=== PATIENT | female | born 1965 | race Caucasian/White ===

== ENCOUNTER → 2020-08-15 | Outpatient (CLI) | payer OTHER ==
--- NOTE | 2020-08-17 08:09 | BD ---
EXAMINATION TYPE: Axial Bone Density DATE OF EXAM: 08/15/2020 COMPARISON: NONE CLINICAL HISTORY: Postmenopausal female. Disorder of bone. Height: 64 IN Weight: 125 LBS FRAX RISK QUESTIONS: Secondary Osteoporosis: Rheumatoid Arthritis: YES RISK FACTORS HISTORY OF: Active: YES Diet low in dairy products/other sources of calcium: YES Postmenopausal woman: PARTIAL HYST AGE 44 MEDICATIONS: Additional Medications: VIT D, NAPROXEN, MAGNESIUM, MULTI VIT, B12, EXAM MEASUREMENTS: Bone mineral densitometry was performed using the [employer] System. Bone mineral density as measured about the Lumbar spine is: ----- L1-L4(G/cm2): 1.157 T Score Values are as follows: ----- L2: -0.3 ----- L3: 0.1 ----- L4: 0.0 ----- L1-L4: -0.2 Bone mineral density BASELINE Bone mineral density about the R hip (g/cm2): 0.734 Bone mineral density about the L hip (g/cm2): 0.774 T Score values are as follows: -----R Neck: -2.2 -----L Neck: -1.9 -----R Total: -1.8 -----L Total: -1.9 Bone mineral density BASELINE IMPRESSION: Osteopenia (T Score between -2.5 and -1) in both hips. There is slightly increased risk of fracture and the patient may be considered for treatment. Re-Screen 2-5 years. NOTE: T-SCORE=SD OF THE YOUNG ADULT MEAN.
--- NOTE | 2020-08-17 12:09 | MM ---
Reason for exam: screening (asymptomatic). Last mammogram was performed 4 years and 4 months ago. History: Patient is postmenopausal. Family history of breast cancer in maternal aunt at age 80. Took hormonal contraceptives for 4 years. Physical Findings: A clinical breast exam by your physician is recommended on an annual basis and results should be correlated with mammographic findings. MG Screening Mammo w CAD Bilateral CC and MLO view(s) were taken. Prior study comparison: April 09, 2016, bilateral MG screening mammo w CAD. Finding: There are typically benign, fine, diffuse/scattered calcifications in both breasts. No significant changes in finding since April 09, 2016. ASSESSMENT: Benign, BI-RAD 2 RECOMMENDATION: Routine screening mammogram of both breasts in 1 year.
== END | disposition home or self-care (01) ==
LOC: RADMAMWWP 14:28
PROVIDERS: ATTEND Family Medicine
DX: Z12.31 Encounter for screening mammogram for malignant neoplasm of breast (principal); M85.89 Other specified disorders of bone density and structure, multiple sites
CPT/HCPCS: 77067; 77080

== ENCOUNTER 2023-08-06 16:45 | Observation (INO) | payer OTHER ==
--- NOTE | 2023-08-06 18:10 | ED ---
General Adult HPI - General Chief complaint: Chest Pain Stated complaint: Chest pain,irregular EKG Time Seen by Provider: 08/06/23 17:33 Source: patient, RN notes reviewed, old records reviewed Mode of arrival: ambulatory Limitations: no limitations - History of Present Illness Initial comments: 57-year-old female presenting for evaluation of chest pain and hypertension. Patient was seen by primary care provider today for evaluation of elevated blood pressure. She states she is under a great deal of stress. She was noted to have some EKG changes and was sent to the emergency department with concern for ACS. She'll be given nitroglycerin and aspirin prior to arrival. - Related Data Home Medications Medication Instructions Recorded Confirmed Naproxen [Naprosyn] 500 mg PO BID PRN 03/18/16 08/06/23 Adalimumab [Humira(Cf) Pen] 40 mg SQ Q14D 08/06/23 08/06/23 Allergies Allergy/AdvReac Type Severity Reaction Status Date / Time No Known Allergies Allergy Verified 08/06/23 20:47 Review of Systems ROS Statement: Those systems with pertinent positive or pertinent negative responses have been documented in the HPI. ROS Other: All systems not noted in ROS Statement are negative. Past Medical History Past Medical History: Osteoarthritis (OA) History of Any Multi-Drug Resistant Organisms: None Reported Past Surgical History: Hysterectomy Past Anesthesia/Blood Transfusion Reactions: Motion Sickness Past Psychological History: No Psychological Hx Reported Past Alcohol Use History: Occasional Past Drug Use History: None Reported - Past Family History Mother Family Medical History: No Reported History General Exam Limitations: no limitations General appearance: alert, in no apparent distress, anxious Head exam: Present: atraumatic, normocephalic Eye exam: Present: normal appearance, PERRL Neck exam: Present: normal inspection. Absent: tenderness, meningismus Respiratory exam: Present: normal lung sounds bilaterally. Absent: respiratory distress, wheezes Cardiovascular Exam: Present: regular rate, normal rhythm GI/Abdominal exam: Present: soft. Absent: distended, tenderness, guarding Neurological exam: Present: alert, oriented X3, CN II-XII intact. Absent: motor sensory deficit Psychiatric exam: Present: anxious Skin exam: Present: warm, dry, intact Course Vital Signs 08/06/23 08/06/23 08/06/23 17:43 19:38 20:55 Temperature Pulse Rate 80 82 78 Pulse Rate [ Pulse Oximetery ] Respiratory 18 16 14 Rate Blood Pressure 213/109 175/95 140/123 Blood Pressure [Left Arm] O2 Sat by Pulse 100 97 98 Oximetry 08/06/23 08/06/23 08/07/23 21:45 22:07 01:05 Temperature Pulse Rate 84 75 73 Pulse Rate [ Pulse Oximetery ] Respiratory 18 16 18 Rate Blood Pressure 151/111 138/76 134/84 Blood Pressure [Left Arm] O2 Sat by Pulse 98 98 97 Oximetry 08/07/23 08/07/23 08/07/23 02:05 03:59 09:56 Temperature Pulse Rate 80 80 75 Pulse Rate [ Pulse Oximetery ] Respiratory 18 18 20 Rate Blood Pressure 145/99 145/99 147/89 Blood Pressure [Left Arm] O2 Sat by Pulse 96 96 98 Oximetry 08/07/23 08/07/23 08/07/23 10:39 12:00 13:00 Temperature Pulse Rate 88 89 87 Pulse Rate [ Pulse Oximetery ] Respiratory 16 20 20 Rate Blood Pressure 142/82 134/76 150/98 Blood Pressure [Left Arm] O2 Sat by Pulse 99 98 98 Oximetry 08/07/23 08/07/23 14:00 14:14 Temperature 98.3 F Pulse Rate 68 Pulse Rate [ 85 Pulse Oximetery ] Respiratory 20 20 Rate Blood Pressure 157/68 Blood Pressure 124/68 [Left Arm] O2 Sat by Pulse 97 98 Oximetry Medical Decision Making - Medical Decision Making Was pt. sent in by a medical professional or institution (, PA, ORDER PROCESSING MANAGER, urgent care, hospital, or jail...) When possible be specific @ -No Did you speak to anyone other than the patient for history (EMS, parent, family, police, friend...)? What history was obtained from this source @ -No Did you review nursing and triage notes (agree or disagree)? Why? @ -I reviewed and agree with nursing and triage notes Were old charts reviewed (outside hosp., previous admission, EMS record, old EKG, old radiological studies, urgent care reports/EKG's, jail records)? Report findings @ -No old charts were reviewed Differential Diagnosis (chest pain, altered mental status, abdominal pain women, abdominal pain men, vaginal bleeding, weakness, fever, dyspnea, syncope, h eadache, dizziness, GI bleed, back pain, seizure, CVA, palpatations, mental health, musculoskeletal)? @ Differential Chest Pain: Stable Angina, Unstable Angina, STEMI, NSTEMI Aortic Dissection, Pneumothorax, Musculoskeletal, Esophageal Spasm GERD, Cholecystitis, Pancreatitis, Zoster, this is not meant to be an all-inclusive list. EKG interpreted by me (3pts min.). @ -Sinus rhythm right bundle branch block, rate of 88, AZ interval 152, QRS duration 121, QTC 428, no ST segment elevation. X-rays interpreted by me (1pt min.). @ -Chest x-ray no pneumothorax, normal cardiac silhouette, no focal pneumonia CT interpreted by me (1pt min.). @ CT angiogram shows normal caliber aorta, nondiagnostic for distal pulmonary emboli but no central pulmonary embolism visualized. U/S interpreted by me (1pt. min.). @ -None done What testing was considered but not performed or refused? (CT, X-rays, U/S, labs)? Why? @ -None What meds were considered but not given or refused? Why? @ -None Did you discuss the management of the patient with other professionals (professionals i.e. , PA, ORDER PROCESSING MANAGER, lab, RT, psych nurse, social secretary, parts puller, teacher, financial officer, casework specialist)? Give summary @ -No Was smoking cessation discussed for >3mins.? @ -No Was critical care preformed (if so, how long)? @ -yes, 35 min Were there social determinants of health that impacted care today? How? (Homelessness, low income, unemployed, alcoholism, drug addiction, transportation, low edu. Level, literacy, decrease access to med. care, fdc, rehab)? @ -No Was there de-escalation of care discussed even if they declined (Discuss DNR or withdrawal of care, Hospice)? DNR status @ -No What co-morbidities impacted this encounter? (DM, HTN, Smoking, COPD, CAD, Cancer, CVA, ARF, Chemo, Hep., AIDS, mental health diagnosis, sleep apnea, morbid obesity)? @ -None Was patient admitted / discharged? Hospital course, mention meds given and route, prescriptions, significant lab abnormalities, going to OR and other perti nent info. @ -57-year-old female presenting with elevated blood pressure and chest tightness. EKG is sinus without ST segment elevation. No old for comparison. Patient has a chest x-ray is clear. Normal CBC, normal CMP, initial troponin is negative. I did order CT of the chest with contrast given the hypotension and chest discomfort. This was negative for aortic pathology. No central pulmonary embolism. Patient's blood pressure is down trending in the emergency depart ment, Still remains elevated. She will be admitted for serial cardiac enzymes, telemetry cardiology consultation. Will be ordered. Undiagnosed new problem with uncertain prognosis? @ -No Drug Therapy requiring intensive monitoring for toxicity (Heparin, Nitro, Insulin, Cardizem)? @ -No Were any procedures done? @ -No Diagnosis/symptom? @ -[Chest pain. HTN Acute, or Chronic, or Acute on Chronic? @ -acute Uncomplicated (without systemic symptoms) or Complicated (systemic symptoms)? @ -[complicated Side effects of treatment? @ -No Exacerbation, Progression, or Severe Exacerbation? @ -No Poses a threat to life or bodily function? How? (Chest pain, USA, NM, pneumonia, PE, COPD, DKA, ARF, appy, cholecystitis, CVA, Diverticulitis, Homicidal, Suicidal, threat to staff... and all critical care pts) @ -[yes, acs - Lab Data Result diagrams: 08/06/23 17:51 08/06/23 17:51 Lab Results 08/06/23 08/06/23 08/06/23 Range/Units 17:51 17:51 17:51 WBC 8.5 (3.8-10.6) k/uL RBC 4.54 (3.80-5.40) m/uL Hgb 13.6 (11.4-16.0) gm/dL Hct 41.4 (34.0-46.0) % MCV 91.3 (80.0-100.0) fL MCH 30.1 (25.0-35.0) pg MCHC 33.0 (31.0-37.0) g/dL RDW 13.5 (11.5-15.5) % Plt Count 361 (150-450) k/uL MPV 6.9 Neutrophils % 59 % Lymphocytes % 32 % Monocytes % 5 % Eosinophils % 1 % Basophils % 1 % Neutrophils # 5.0 (1.3-7.7) k/uL Lymphocytes # 2.8 (1.0-4.8) k/uL Monocytes # 0.4 (0-1.0) k/uL Eosinophils # 0.1 (0-0.7) k/uL Basophils # 0.1 (0-0.2) k/uL Sodium 138 (137-145) mmol/L Potassium 3.6 (3.5-5.1) mmol/L Chloride 102 (98-107) mmol/L Carbon Dioxide 22 (22-30) mmol/L Anion Gap 14 mmol/L BUN 19 H (7-17) mg/dL Creatinine 0.62 (0.52-1.04) mg/dL Est GFR (CKD-EPI)AfAm >90 (>60 ml/min/1.73 sqM) Est GFR (CKD-EPI)NonAf >90 (>60 ml/min/1.73 sqM) Glucose 97 (74-99) mg/dL Calcium 9.3 (8.4-10.2) mg/dL Magnesium 2.3 (1.6-2.3) mg/dL Total Bilirubin 0.4 (0.2-1.3) mg/dL AST 29 (14-36) U/L ALT 20 (4-34) U/L Alkaline Phosphatase 127 H (38-126) U/L Troponin I <0.012 (0.000-0.034) ng/mL NT-Pro-B Natriuret Pep 93 pg/mL Total Protein 8.4 H (6.3-8.2) g/dL Albumin 4.3 (3.5-5.0) g/dL Lipase 208 (23-300) U/L Critical Care Time Critical Care Time: Yes Total Critical Care Time: 35 Disposition Clinical Impression: Chest pain, Hypertension Disposition: ADMITTED IP TO THIS HOSP Condition: Stable Is patient prescribed a controlled substance at d/c from ED?: No Time of Disposition: 20:06
[2023-08-06 18:23] LABS: Basophils # (A) 0.1 k/uL (0-0.2); Basophils % (A) 1 %; Eosinophils # (A) 0.1 k/uL (0-0.7); Eosinophils % (A) 1 %; HCT 41.4 % (34.0-46.0); HGB 13.6 gm/dL (11.4-16.0); Lymphocytes # (A) 2.8 k/uL (1.0-4.8); Lymphocytes % (A) 32 %; MCH 30.1 pg (25.0-35.0); MCV 91.3 fL (80.0-100.0); Mean Platelet Volume 6.9; Monocytes # (A) 0.4 k/uL (0-1.0); Monocytes % (A) 5 %; Neutrophils % (A) 59 %; Platelet Count 361 k/uL (150-450); RBC 4.54 m/uL (3.80-5.40); RDW 13.5 % (11.5-15.5); WBC 8.5 k/uL (3.8-10.6)
--- NOTE | 2023-08-06 18:38 | XR ---
EXAMINATION TYPE: XR chest 2V DATE OF EXAM: 08/06/2023 COMPARISON: None HISTORY: 57-year-old female with chest pain TECHNIQUE: PA and lateral views FINDINGS: The cardiomediastinal silhouette, aorta, and pulmonary vasculature are within normal limits. Some str lucero atelectasis at the left base. Otherwise, lungs and pleural spaces are clear. IMPRESSION: Some strandy left basilar atelectasis. Otherwise, no acute process seen.
[2023-08-06 18:50] LABS: NT-Pro-B-Type Natriuretic Pept 93 pg/mL
[2023-08-06] MEDS ORDERED: NITROGLYCERIN-D5W PMX 50 MG in DEXTROSE/WATER 1 250ML.BAG IV ONE (19:03)
[2023-08-06 19:41] LABS: ALT 20 U/L (4-34); AST 29 U/L (14-36); African American GFR (CKD) >90 (>60 ml/min/1.73 sqM); Albumin 4.3 g/dL (3.5-5.0); Alkaline Phosphatase 127 U/L (38-126); Anion Gap 14 mmol/L; Blood Urea Nitrogen 19 mg/dL (7-17); Calcium 9.3 mg/dL (8.4-10.2); Carbon Dioxide 22 mmol/L (22-30); Chloride 102 mmol/L (98-107); Glucose 97 mg/dL (74-99); Lipase 208 U/L (23-300); Magnesium 2.3 mg/dL (1.6-2.3); Non-African American GFR(CKD) >90 (>60 ml/min/1.73 sqM); Potassium 3.6 mmol/L (3.5-5.1); Sodium 138 mmol/L (137-145); Total Bilirubin 0.4 mg/dL (0.2-1.3); Total Protein 8.4 g/dL (6.3-8.2)
--- NOTE | 2023-08-06 19:44 | CT ---
EXAMINATION TYPE: CT angio chest DATE OF EXAM: 08/06/2023 COMPARISON: Radiograph 08/06/2023 HISTORY: 57-year-old female CP, Near syncope. TECHNIQUE: Contiguous axial scanning of the chest after the administration of 100 ml mL of Isovue 370 . Coronal/sagittal MIP reconstructions performed. CT DLP: 270.1mGycm. Automatic exposure control utilized for a dose reduction. FINDINGS: Heart normal size without pericardial effusion. No flattening of the interventricular septum reflux o f contrast into the hepatic veins. Aorta normal caliber with conventional arch vessel branching anatomy. No thoracic lymphadenopathy by CT size criteria. There is suboptimal contrast bolus and suboptimal assessment for pulmonary emboli. No definite centra l or lobar branch embolus is seen. Segmental more distal arterial branches are largely nondiagnostic due to the suboptimal contrast bolus. No thoracic lymphadenopathy by CT size criteria. No consolidation or pleural effusion. Biapical pleural parenchymal scarring noted. Visualized upper abdomen shows mild low density nodularity of the adrenal glands. Bones: Mild degenerative disc disease throughout. IMPRESSION: 1. Suboptimal contrast bolus. Limited assessment for PE. No definite large central or lobar branch em bolus. Many of the segmental and more distal branches are nondiagnostic due to suboptimal contrast anel stanislav. 2. No acute pulmonary process seen.
[2023-08-06] MEDS ORDERED: ALPRAZolam 0.25 MG TAB PO PRN (20:00)
[2023-08-06] MEDS ORDERED: NALOXONE 0.4 MG/ML 1 ML VIAL IV PRN (20:00)
[2023-08-06 21:19] LABS: Partial Thromboplastin Time 26.1 sec (22.0-30.0); Prothrombin Time 10.7 sec (10.0-12.5)
[2023-08-06] MEDS: SODIUM CHLORIDE 0.9% 1,000 ML IV SCH (21:46)
[2023-08-07] MEDS ORDERED: ASPIRIN 81 MG PO STA (07:23)
--- NOTE | 2023-08-07 07:25 | P.HPIM ---
History of Present Illness This is a pleasant 57 years old female with past medical history of osteoarthritis and rheumatoid arthritis. On Humira Patient presents because of chest pain on and off for the last 2-3 weeks, it was 6/10 on the presentation currently 2/10. In the middle of the chest radiating to both 6. [place] like a pressure with no precipitating or relieving factors. No dyspnea or coughing. This. No fever or chills. No smoking or illicit drugs and she drinks L: Occasionally. Vitas looks stable. Labs reviewed she has unremarkable CBC, BMP, LFTs, INR, lipase. Cardiac troponin 2 are negative less than 0.012. CTA of the chest is limited study but showing no pulmonary embolism in the main and large pulmonary arteries Chest x-ray is negative for acute process showing atelectasis Currently she is on nitroglycerin drip and normal saline at 75 mL/h. Review of Systems Review of systems CONSTITUTIONAL: No fever, no malaise, no fatigue. HEENT: No recent visual problems or hearing problems. Denied any sore throat. CARDIOVASCULAR: No orthopnea, PND, no palpitations, no syncope. PULMONARY: No shortness of breath, no cough, no hemoptysis. GASTROINTESTINAL: No diarrhea, no nausea, no vomiting, no abdominal pain. Normoactive bowel sounds. NEUROLOGICAL: No headaches, no weakness, no numbness. HEMATOLOGICAL: Denies any bleeding or petechiae. GENITOURINARY: Denies any burning micturition, frequency, or urgency. MUSCULOSKELETAL/RHEUMATOLOGICAL: Denies any joint pain, swelling, or any muscle pain. ENDOCRINE: Denies any polyuria or polydipsia. Past Medical History Past Medical History: Osteoarthritis (OA) History of Any Multi-Drug Resistant Organisms: None Reported Past Surgical History: Hysterectomy Past Anesthesia/Blood Transfusion Reactions: Motion Sickness Past Psychological History: No Psychological Hx Reported Smoking Status: Never smoker Past Alcohol Use History: Occasional Past Drug Use History: None Reported - Past Family History Mother Family Medical History: No Reported History Medications and Allergies Home Medications Medication Instructions Recorded Confirmed Type Naproxen [Naprosyn] 500 mg PO BID PRN 03/18/16 08/06/23 History Adalimumab [Humira(Cf) Pen] 40 mg SQ Q14D 08/06/23 08/06/23 History Allergies Allergy/AdvReac Type Severity Reaction Status Date / Time No Known Allergies Allergy Verified 08/06/23 20:47 Physical Exam Vitals: Vital Signs Pulse Resp BP Pulse Ox 08/07/23 03:59 80 18 145/99 96 08/07/23 02:05 80 18 145/99 96 08/07/23 01:05 73 18 134/84 97 08/06/23 22:07 75 16 138/76 98 08/06/23 21:45 84 18 151/111 98 08/06/23 20:55 78 14 140/123 98 08/06/23 19:38 82 16 175/95 97 08/06/23 17:43 80 18 213/109 100 Intake and Output 08/06/23 08/07/23 08/07/23 22:59 06:59 14:59 Intake Total 3.35 Balance 3.35 Intake: Intake, IV Titration 3.35 Amount Nitroglycerin-D5w Pmx 50 3.35 mg In Dextrose/Water 1 250ml.bag @ 5 MCG/MIN 1.5 mls/hr IV .Q24H ONE Rx#: [id number] Other: Weight 61.689 kg 61.689 kg GENERAL: The patient is alert and oriented x3, not in any acute distress. Well developed, well nourished. HEENT: Pupils are round and equally reacting to light. EOMI. No scleral icterus. No conjunctival pallor. Normocephalic, atraumatic. No pharyngeal erythema. No thyromegaly. CARDIOVASCULAR: S1 and S2 present. No murmurs, rubs, or gallops. PULMONARY: Chest is clear to auscultation, no wheezing , no crackles. ABDOMEN: Soft, nontender, nondistended, normoactive bowel sounds. No palpable organomegaly. MUSCULOSKELETAL: No joint swelling or deformity. EXTREMITIES: No cyanosis, clubbing, or pedal edema. NEUROLOGICAL: Gross neurological examination did not reveal any focal deficits. SKIN: No rashes. no petechiae. Results CBC & Chem 7: 08/06/23 17:51 08/06/23 17:51 Labs: Abnormal Lab Results - Last 24 Hours (Table) 08/06/23 Range/Units 17:51 BUN 19 H (7-17) mg/dL Alkaline Phosphatase 127 H (38-126) U/L Total Protein 8.4 H (6.3-8.2) g/dL Thrombosis Risk Factor Assmnt - Choose All That Apply Any of the Below Risk Factors Present?: Yes Each Factor Represents 1 point: Acute MD, Age 41-60 years Other Risk Factors: No Other congenital or acquired thrombophilia - If yes, enter type in comment: No Thrombosis Risk Factor Assessment Total Risk Factor Score: 2 Thrombosis Risk Factor Assessment Level: Low Risk Assessment and Plan Assessment: Chest pain, rule out cardiac causes Rheumatoid arthritis History of osteoarthritis Plan: Give aspirin 81 mg 1 Continue with nitroglycerin drip Cardiology consult Echocardiogram Labs and medication were reviewed.. Continue same treatment. Continue with symptomatic treatment. Resume home medication. Monitor labs and vitals. DVT and GI prophylaxis. Further recommendations as per clinical course of the patient DVT prophylaxis: Subcutaneous heparin GI Prophylaxis: Pepcid Prognosis is guarded
--- NOTE | 2023-08-07 09:37 | CONS ---
CONSULTATION CHIEF COMPLAINT: Uncontrolled hypertension and chest pain. HISTORY OF PRESENT ILLNESS: Mariana is a 57-year-old lady with history of arthritis, who presented for routine physical evaluation to her primary care physician's office. Her blood pressure was found to be elevated and subsequently had been sent to the emergency room. She also complained of chest discomfort. Her chest discomfort is sharp, precordial and radiates to her neck. EKG showed sinus rhythm with right bundle branch block and secondary ST-T wave changes. Since admission, she has had 2 sets of cardiac enzymes that are both within normal limits. Hemoglobin is normal at 13.6. Creatinine normal at 0.6. She had a CT scan of the chest that did not reveal any definite evidence of pulmonary embolism, aorta appeared normal. At the time of my evaluation this morning, she is chest pain-free and hemodynamically stable, still has uncontrolled hypertension with 160/89. Her renal functions are normal with a creatinine of 0.6. PAST MEDICAL HISTORY: Significant for arthritis. MEDICATIONS: Medications at home included naproxen and Humira. ALLERGIES: No known drug allergies. FAMILY HISTORY: Negative for premature coronary artery disease. SOCIAL HISTORY: Negative for current smoking, EtOH abuse, or drug abuse. REVIEW OF SYSTEMS: HEENT: Unremarkable. CARDIAC: As described above. RESPIRATORY: As described above. GI: Negative. GENITOURINARY: Negative. ALLERGY/IMMUNOLOGY: Negative. SKIN: Negative. MUSCULOSKELETAL: Negative. ENDOCRINE: Negative. DERM: Negative. CONSTITUTIONAL: Negative. ONCOLOGICAL: Negative. Rest of the system review is not relevant. PHYSICAL EXAMINATION: VITAL SIGNS: Heart rate is 80 beats per minute, blood pressure is 144/99, respiratory rate 18, O2 saturation is 96% on room air. NECK: There is no jugular venous distention. Carotid upstroke is normal. There is no bruit. CHEST: Reveals good air entry bilaterally. HEART: Reveals first and second heart sounds. No gallop. Has a systolic murmur at the left lower sternal border. ABDOMEN: Soft. EXTREMITIES: Exam of extremities did not reveal any edema. Peripheral pulses are felt. LABORATORY DATA: Labs show that the hemoglobin is normal. Platelet count is normal. Creatinine is normal. Potassium is 3.6. Troponins are negative. BNP is normal. ASSESSMENT: 1. Precordial chest pain. 2. Uncontrolled hypertension, new onset. PLAN: I am going to obtain a 2D echo, control the blood pressures more optimally and once the blood pressures are well controlled, consider a stress test on her. I am going to stop the IV nitroglycerin at this time and add amlodipine and losartan for blood pressure control. MMODL / IJN: [id number] /
[2023-08-07] MEDS: FAMOTIDINE 20 MG/2 ML VIAL IV SCH ×2 (09:41→20:15)
[2023-08-07] MEDS: HEPARIN SODIUM,PORCINE 5,000 UNIT/ML 1 ML VIAL SQ SCH ×2 (09:41→20:15)
[2023-08-07] MEDS: LOSARTAN 50 MG TAB PO SCH (09:41)
[2023-08-07] MEDS: amLODIPine 10 MG TAB PO SCH (09:41)
[2023-08-07] MEDS: SODIUM CHLORIDE 0.9% 1,000 ML IV SCH ×2 (09:46→20:09)
[2023-08-07] MEDS ORDERED: ACETAMINOPHEN TAB 325 MG TAB PO PRN (11:56)
[2023-08-07] MEDS ORDERED: ACETAMINOPHEN TAB 325 MG TAB PO STA (11:56)
[2023-08-08] MEDS: LOSARTAN 50 MG TAB PO SCH (09:06)
[2023-08-08] MEDS: amLODIPine 10 MG TAB PO SCH (09:06)
[2023-08-08] MEDS: HEPARIN SODIUM,PORCINE 5,000 UNIT/ML 1 ML VIAL SQ SCH (09:06)
[2023-08-08] MEDS ORDERED: FAMOTIDINE 20 MG TAB PO SCH (09:30)
--- NOTE | 2023-08-08 10:10 | CA ---
Transthoracic Echo Report Name: Mariana Moore Age: 57 Gender: F : 1965 Exam Date: 08/07/2023 10:01 Exam Location: [place] [facility] Ht (in): 64 Wt (lb): 136 Ordering Physician: Ashutosh Campbell MD Attending/Referring Phys: [id number], [employer] Warren Levy Procedure CPT: Indications: Rule out heart disease Cardiac Hx: Technical Quality: Technically difficult study Contrast 1: Definity Total Dose (mL): 2 Contrast 2: Total Dose (mL): MEASUREMENTS (Male / Female) Normal Values 2D ECHO LV Diastolic Diameter PLAX 3.4 cm 4.2 - 5.9 / 3.9 - 5.3 cm LV Systolic Diameter PLAX 2.1 cm IVS Diastolic Thickness 1.1 cm 0.6 - 1.0 / 0.6 - 0.9 cm LVPW Diastolic Thickness 1.3 cm 0.6 - 1.0 / 0.6 - 0.9 cm LV Relative Wall Thickness 0.7 RV Internal Dim ED PLAX 1.8 cm LVOT Diameter 1.9 cm Aortic Root Diameter 2.4 cm LA Systolic Diameter LX 1.2 cm 3.0 - 4.0 / 2.7 - 3.8 cm LV Diastolic Volume MOD BP 27.0 cm??? 67 - 155 / 56 - 104 cm??? LV Systolic Volume MOD BP 9.7 cm??? 22 - 58 / 19 - 49 cm??? LV Ejection Fraction MOD BP 64.1 % >= 55 % LV Cardiac Index MOD BP 744.0 cm???/min???m??? LV Diastolic Volume MOD 4C 37.2 cm??? LV Systolic Volume MOD 4C 13.6 cm??? LV Ejection Fraction MOD 4C 63.4 % LV Cardiac Index MOD 4C 1014.3 cm???/min???m??? LV Diastolic Length 4C 6.7 cm LV Systolic Length 4C 6.1 cm LV Diastolic Volume MOD 2C 18.6 cm??? LV Systolic Volume MOD 2C 6.2 cm??? LV Ejection Fraction MOD 2C 66.5 % LV Cardiac Index MOD 2C 532.4 cm???/min???m??? LV Diastolic Length 2C 6.4 cm LV Systolic Length 2C 5.4 cm LA Volume 21.3 cm??? 18 - 58 / 22 - 52 cm??? LA Volume Index 12.7 cm???/m??? 16 - 28 cm???/m??? Ascending Aorta Diameter 2.5 cm DOPPLER AV Peak Velocity 117.2 cm/s AV Peak Gradient 5.5 mmHg LVOT Peak Velocity 111.1 cm/s LVOT Peak Gradient 4.9 mmHg LVOT Velocity Time Integral 20.8 cm LVOT Stroke Volume 60.5 cm??? LVOT Stroke Volume Index 36.4 ml/m??? LVOT Cardiac Index 2599.1 cm???/min???m??? AV Area Cont Eq pk 2.8 cm??? MV Peak Velocity 109.7 cm/s MV Peak Gradient 4.8 mmHg MV Mean Velocity 57.6 cm/s MV Mean Gradient 1.7 mmHg MV Velocity Time Integral 34.1 cm Mitral E Point Velocity 86.7 cm/s Mitral A Point Velocity 85.2 cm/s Mitral E to A Ratio 1.0 MV Deceleration Time 211.6 ms TR Peak Velocity 111.1 cm/s TR Peak Gradient 4.9 mmHg Right Ventricular Systolic Press 9.9 mmHg PV Peak Velocity 110.3 cm/s PV Peak Gradient 4.9 mmHg FINDINGS Left Ventricle Mildly increased septal wall thickness. Mildly increased posterior wall thickness. Left ventricular ejection fraction is estimated at 60-65 %. Right Ventricle Normal right ventricular size. Right Atrium Normal right atrial size. Left Atrium Normal left atrial size. Mitral Valve Structurally normal mitral valve. Aortic Valve Trileaflet aortic valve. No aortic valve stenosis or regurgitation. Tricuspid Valve Structurally normal tricuspid valve. Osman TR. Pulmonic Valve Pulmonic valve not well visualized. No pulmonic regurgitation. Pericardium Normal pericardium. Aorta Normal size aortic root and proximal ascending aorta. CONCLUSIONS Left ventricular Ejection fraction 60-65% Trace tricuspid regurgitation No pericardial effusion Previewed by: Dr. Ponce Pena DO (Electronically Signed) Final Date: 08 August 2023 10:09
[2023-08-08] MEDS: SODIUM CHLORIDE 0.9% 1,000 ML IV SCH (11:02)
[2023-08-08] MEDS ORDERED: NITROGLYCERIN SL TABS 0.4 MG TAB SUBLINGUAL ONE (12:44)
[2023-08-08] MEDS ORDERED: MAG HYDROX/AL HYDROX/SIMETH 30 ML, HYOSCYAMINE ELIXIR 10 ML PO ONE ×2 (14:00)
[2023-08-08 14:32] VITALS: RESP 18
[2023-08-08 15:59] VITALS: TEMP 97.6
[2023-08-08] MEDS ORDERED: ISOSORBIDE MONONITRATE ER 15 MG TAB PO SCH (16:00)
[2023-08-08] MEDS ORDERED: ATORVASTATIN 40 MG TAB PO SCH (16:00)
[2023-08-08] MEDS ORDERED: ASPIRIN 81 MG PO SCH (16:00)
[2023-08-08] MEDS ORDERED: ATORVASTATIN 20 MG TAB PO SCH (16:45)
[2023-08-08 17:25] VITALS: BP 130/73; PULSE 86
--- NOTE | 2023-08-08 20:48 | P.PN ---
Subjective Progress Note Date: 08/08/23 SUBJECTIVE: Patient was following up with her primary care physician where she was noticed to have significantly high blood pressure and was instructed to go to the ER. On admission she also reported some chest pressure-like sensation. Her ECG showed sinus rhythm with right bundle branch block with no significant ST changes concerning of ischemia. Her troponin enzyme was negative. Echo showed preserved LV function with no wall motion abnormality or major valvular dysfunction. PHYSICAL EXAMINATION Vital signs reviewed. Head: Normocephalic. Eyes: Sclerae nonicteric. Neck: Brisk carotid upstroke, no jugular venous distention. Lungs: Clear to auscultation. Heart: Regular rate and rhythm, S1-S2, no S3, no murmur or rub. Abdomen: Soft nontender, positive bowel sounds no organomegaly. Extremities: No edema, intact distal pulses. ASSESSMENT Uncontrolled blood pressure, new onset likely due to steroid use Atypical chest pain likely due to uncontrolled blood pressure PLAN I evaluated the history and patient reports that 2 weeks ago she was started on systemic steroids for rheumatoid arthritis flareup. During this same duration she has noticed that her blood pressure has been top which can be very well caused by systemic steroids. She was started on amlodipine 10 mg, losartan 50 mg. I feel these doses are too high as patient is antihypertensive uriel and blood pressure could be secondary related to systemic steroid use. We will reduce dose to amlodipine 5 mg losartan 25 mg. I instructed patient to check blood pressure at home as his blood pressure might drop further and we might need to reduce her antihypertensives further. Next We'll start Imdur 15 mg because of an episode of chest pain that patient had this morning. Patient reported that she was emotionally stressed when she had this chest pain symptoms. We will continue Lipitor 20 mg Outpatient follow-up with [facility] and a treadmill echo stress test Okay to be discharged from [facility] Objective - Vital Signs Vital signs: Vital Signs Temp 97.6 F 08/08/23 16:55 Pulse 86 08/08/23 16:55 Resp 18 08/08/23 16:55 BP 130/73 08/08/23 16:55 Pulse Ox 99 08/08/23 16:55 FiO2 Intake & Output 08/08/23 08/08/23 08/09/23 06:59 18:59 06:59 Intake Total 360 Output Total 0 Balance 360 Intake: Oral 360 Output: Gastric Drainage 0 Urine 0 Stool 0 Urine/Stool Mix 0 Emesis 0 Oral Regurgitation 0 Other 0 Other: # Voids 0 # Bowel Movements 0 - Labs CBC & Chem 7: 08/06/23 17:51 08/06/23 17:51
--- NOTE | 2023-08-08 23:06 | P.DS ---
Providers Date of admission: 08/06/23 20:00 Attending physician: Gilmer Rodriguez Consults: 08/06/23 20:00 Consult Physician Routine Consulting Provider: Robbie Dial Consult Reason/Comments: CP Do you want consulting provider notified?: Yes Primary care physician: Theresa Callejas Hospital Course: Diagnoses: Chest pain, rule out cardiac causes. Resolved and senior storage administrator recommended outpatient stress test Rheumatoid arthritis History of osteoarthritis Hospital course: This is a pleasant 57 years old female with past medical history of osteoarthritis and rheumatoid arthritis. On Humira Patient presents because of chest pain on and off for the last 2-3 weeks, it was 6/10 on the presentation currently 0/10 upon discharge.. Besides no chest pain patient also denies dyspnea for me. No other new complaints. No change in urine or bowel habits. No fever. Temperature Control Inspector evaluated the patient and she was started on Norvasc 5 mg and losartan 25 mg. Ejection fraction 60-65%. Troponin negative. CTA is negative for pulmonary embolism. Patient was cleared for discharge by senior storage administrator with recommendation for outpatient stress test. Patient agrees. Problems and management plan were discussed with the patient and he verbalized understanding and acceptance Patient was found stable and can be discharged home in guarded prognosis however he needs follow-up as an outpatient. Patient was instructed to follow up with PCP Dr. callejas within one week and patient agrees Patient was instructed to follow up with senior storage administrator Dr. Arana/Dr. Patel in 1-2 weeks and she agrees Physical exam Gen: patient is a AAOx3, no distress CVS: S1-S2, RRR, no murmur Lungs: B/L CTA, no wheezing Abdomen: soft, no distention, no tenderness, positive bowel sounds Extremity: no leg edema or induration Time spent more than 35 minutes Patient Condition at Discharge: Stable Plan - Discharge Summary Discharge Rx Participant: Yes New Discharge Prescriptions: New Isosorbide Mononitrate ER [Imdur] 15 mg PO DAILY #30 tab Atorvastatin [Lipitor] 20 mg PO DAILY #30 tab Acetaminophen Tab [Tylenol] 325 mg PO Q6HR PRN tab PRN Reason: Fever And/ Or Pain Losartan [Cozaar] 25 mg PO DAILY #30 tab amLODIPine [Norvasc] 5 mg PO DAILY #30 tab Famotidine [Pepcid] 20 mg PO DAILY #14 tab Continue Naproxen [Naprosyn] 500 mg PO BID PRN PRN Reason: Pain Adalimumab [Humira(Cf) Pen] 40 mg SQ Q14D Discharge Medication List Naproxen [Naprosyn] 500 mg PO BID PRN 03/18/16 [History] Adalimumab [Humira(Cf) Pen] 40 mg SQ Q14D 08/06/23 [History] Acetaminophen Tab [Tylenol] 325 mg PO Q6HR PRN tab 08/08/23 [Rx] Atorvastatin [Lipitor] 20 mg PO DAILY #30 tab 08/08/23 [Rx] Famotidine [Pepcid] 20 mg PO DAILY #14 tab 08/08/23 [Rx] Isosorbide Mononitrate ER [Imdur] 15 mg PO DAILY #30 tab 08/08/23 [Rx] Losartan [Cozaar] 25 mg PO DAILY #30 tab 08/08/23 [Rx] amLODIPine [Norvasc] 5 mg PO DAILY #30 tab 08/08/23 [Rx] Follow up Appointment(s)/Referral(s): Benjamin Mc MD [Medical Doctor] - 1 Week (Please call office to schedule follow up appointment to schedule stress test. ) Theresa Callejas MD [Primary Care Provider] - 1-2 days (Please call the office to schedule follow up appointment. ) Patient Instructions/Handouts: Angina (DC), Hypertensive Crisis (DC) Activity/Diet/Wound Care/Special Instructions: heart healthy diet Discharge Disposition: HOME SELF-CARE
[2023-08-09] MEDS ORDERED: amLODIPine 5 MG TAB PO SCH (09:00)
[2023-08-09] MEDS ORDERED: LOSARTAN 25 MG TAB PO SCH (09:00)
== END 2023-08-08 18:09 | disposition home or self-care (01) ==
LOC: EC 16:45 → 3SCARD 20:00
PROVIDERS: ADMIT Hospitalist; ATTEND Hospitalist
DX: R07.2 Precordial pain (principal); I10 Essential (primary) hypertension; M54.2 Cervicalgia; I45.10 Unspecified right bundle-branch block; M06.9 Rheumatoid arthritis, unspecified; J98.11 Atelectasis; M19.90 Unspecified osteoarthritis, unspecified site; Z79.620 Long term (current) use of immunosuppressive biologic; Z90.710 Acquired absence of both cervix and uterus
CPT/HCPCS: 96376; 96372 ×3; 96365; 96366; 96375; 99291; 36415; 93005; 83835; 83880; 80053; 82533; 82088; 84244; 83690; 83735; 84484 ×2; 85025; 85610; 85730; 71046; 71275; G0378 ×3; C8929; J1644 ×2; J3490; Q9957; Q9967; J2305; 93306